=== PATIENT | female | born 1945 | race Caucasian/White ===

== ENCOUNTER 2018-02-18 12:55 | Emergency (ER) | payer MEDICARE, OTHER, SELFPAY ==
[2018-02-18 13:01] VITALS: BP 180/90; PULSE 55; RESP 17; TEMP 36.6; O2SAT 95; BMI 30.9
--- NOTE | 2018-02-18 14:00 | VDLE_ITS ---
Reason For Study: LEG PAIN Procedure LEFT Exam performed portable in ED. GSV is normal. A preliminary report was called and/or faxed CFV is compressible, spontaneous, phasic, to Dr. George. competent, and demonstrates normal augmentation. FV is compressible, spontaneous, phasic, competent and demonstrates normal augmentation. POP V is compressible, spontaneous, phasic, competent and demonstrates normal augmentation. T/P Trunk is compressible. PTV is compressible. LT PerV is compressible. Heterogenous structure noted medial calf extending from popliteal space to mid calf. Measuring 2.8 x 4.7 cm in transverse view. Non-vascular. Interpretation Summary There is no evidence of left lower extremity deep vein thrombosis. Left greater saphenous vein appears patent and compressible segmentally. 2.8 x 4.7 medial left proximal calf heterogenous mass without vascular flow. This is possibly a Falcon's cyst with hemorrhage--clinical correlation would be appropriate. Ordering Physician: Marquis George Referring Physician: Eduardo Tolbert Performed By: Livia Jose RVT
--- NOTE | 2018-02-18 14:02 | ED.DCSUM_ITS ---
- ER Visit Summary Date of Service: 02/18/18 Chief Complaint: Left leg pain History of Present Illness: The patient is a 72 F resents to the emergency department with left leg pain. The patient was in her normal state of health. She states she has been outdoors for the bulk of the weekend working. She states that she brought her in today for surgery to have a fistula placed in his arm. She was sitting in the waiting room. She states she began to have significant tightness in the posterior left leg down into her calf. She states she was unable to straighten it or bear weight. She states it has been swelling intermittently. The patient does have history of hypertension. She denies any history of prior blood clots. She denies any fevers or chills. She has not fallen. Physical Examination: Vital signs reviewed General: Well-nourished, well-developed Head: Normocephalic, atraumatic Eyes: Pupils equal and reactive, extraocular muscles intact Neck, supple, no lymphadenopathy Heart: Regular rate and rhythm Respiratory: No distress, clear bilaterally Abdomen: Soft, nontender, nondistended, no peritoneal signs Back: Nontender Extremities: No tenderness in left posterior calf positive Homans. Normal pulses. 1+ symmetric edema. Skin: Normal color no rash Neuro: Alert and oriented, no focal or lateralizing deficits Test Results: [] Emergency Department Course and Treatment: IV was established. I did obtain an ultrasound of the lower extremity. There is no evidence of DVT. Pulses are normal. There was a 2.8 x 4 point centimeter heterogeneous structure from the popliteal fossa that is nonvascular. I did review this with the patient. 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 I did certified alcohol drug counselor her that she is going to need outpatient follow-up. She was given Ativan and fluids. She had resolution of her pain. The patient will be discharged home. Treatment Plan: [] Disposition: Discharge Impression:. Left calf spasm This note was generated with [employer] dictation software. It may contain incorrect words, spelling, and punctuation that were not noted in review of the chart prior to signing ED Disposition - Plan for ED Patient: Chief Complaint: Lower Extremity Injury Instructions: ED Muscle Pain Leg Cramps Prescriptions: Diazepam [Valium] 2 mg PO TID PRN PRN #10 tab PRN Reason: Muscle Spasm Referrals: Eduardo Tolbert MD [Primary Care Provider] -
[2018-02-18] MEDS: LORazepam 2 MG/ML Syringe 1 MG IV (14:39)
[2018-02-18 15:03] LABS: Anion Gap 5 (5-15); BUN 23 mg/dL (7-18); BUN/Creat Ratio 39.9 RATIO (10-20); Chloride 104 mmol/L (98-107); Creatinine, Serum 0.58 mg/dL (0.55-1.02); EST Glomerular Filtration Rate 110 mL/min (>60); Est Glom Filt Rate - Afr Amer 133 mL/min (>60); Glucose 88 mg/dL (74-106); Potassium 3.3 mmol/L (3.5-5.1); Sodium Level 138 mmol/L (136-145)
[2018-02-18 16:01] VITALS: BP 162/90; PULSE 59; RESP 17; O2SAT 98
== END 2018-02-18 16:05 | disposition home or self-care (01) ==
LOC: ED 14:14
PROVIDERS: Emergency Provider Emergency Medicine; PCP Family Medicine
DX: M62.831 Muscle spasm of calf (principal); M79.662 Pain in left lower leg; R60.0 Localized edema; I10 Essential (primary) hypertension; G25.81 Restless legs syndrome; Z86.39 Personal history of other endocrine, nutritional and metabolic disease; Z79.82 Long term (current) use of aspirin; Z79.899 Other long term (current) drug therapy
CPT/HCPCS: 80048; 93971; 96374; 99284; A4216